=== PATIENT | female | born 2000 | race Caucasian/White ===

== ENCOUNTER 2018-03-18 00:21 | Emergency (ER) | payer OTHER ==
[~2018-03-18] VITALS: Ht 172.7 cm; Wt 61.8 kg
[2018-03-18 00:23] VITALS: BP 147/81
[2018-03-18] MEDS ORDERED: IBUPROFEN (00:27)
== END 2018-03-18 02:01 | disposition home or self-care (01) ==
LOC: ED 01:00
DX: N92.0 Excessive and frequent menstruation with regular cycle (principal)
CPT/HCPCS: 99281